=== PATIENT | male | born 1950 | race Caucasian/White ===

== ENCOUNTER 2019-09-22 09:20 | Outpatient (CLI) | payer MEDICARE, SELFPAY ==
--- NOTE | ~2019-09-22 | US_ITS ---
EXAMINATION: US right upper quadrant DATE: 09/22/2019 10:01 INDICATION: Gallbladder disease. TECHNIQUE: Multiple grayscale and Doppler ultrasound images of the abdomen were obtained. COMPARISON: Ultrasound 11/14/2018 FINDINGS: The visualized portions of the head, body, and tail of the pancreas are normal. The liver i s normal without focal lesion. There is normal flow in main portal vein. The gallbladder is normal in size and contains sludge with change in position from the prior exam. No gallstones or gallbladder w all thickening. There was no sonographic Driscoll sign. The common duct is normal and measures 5 mm. Th ere is a 1.9 cm cyst in right kidney. IMPRESSION: 1. Gallbladder sludge. No evidence of acute cholecystitis. Reviewed, dictated and finalized at location A.
== END 2019-09-22 09:21 | disposition home or self-care (01) ==
LOC: ANHIMG 09:23
PROVIDERS: PCP Emergency Medicine; Visit Provider Emergency Medicine
DX: K82.8 Other specified diseases of gallbladder (principal)
CPT/HCPCS: 76705

== ENCOUNTER → 2020-09-10 01:19 | Outpatient (CLI) | payer MEDICARE, SELFPAY ==
[2020-09-10 19:37] LABS: SARS-CoV-2 RNA PCR Negative
== END ==
PROVIDERS: PCP Emergency Medicine; Visit Provider Internal Medicine Gastroenterology
DX: Z01.812 Encounter for preprocedural laboratory examination (principal); Z20.822 Contact with and (suspected) exposure to COVID-19
CPT/HCPCS: C9803; U0003; U0005

== ENCOUNTER 2020-09-14 00:16 | Day surgery (SDC) | payer MEDICARE, SELFPAY ==
[2020-09-08 08:35] VITALS: BMI 26.6
[2020-09-14 10:19] VITALS: BP 127/66; PULSE 79; RESP 18; TEMP 36.6; O2SAT 99
[2020-09-14] MEDS: LACTATED RINGERS 1,000 ML 150 ML IV CONT (10:30)
--- NOTE | 2020-09-14 10:49 | WPDANESEPPF ---
Anes - Initial Pre Proc Eval Procedure: Operation Date: 09/14/20 11:15 Proposed Procedures p Screening Colonoscopy - Jon Razo MD Date/Time: 09/14/20 10:49 Surgeon: Jon Razo MD Pre Op Diagnosis: hx of colon polyps Patient Data Age: 69 Gender: M Height: 5 ft 6 in Weight: 74.6 kg Last Vital Signs Temp 97.8 F 09/14/20 10:19 Pulse 79 09/14/20 10:19 Resp 18 09/14/20 10:19 BP 127/66 09/14/20 10:19 Pulse Ox 99 09/14/20 10:19 Allergies Allergy/AdvReac Type Severity Reaction Status Date / Time No Known Allergies Allergy Verified 09/14/20 10:18 Home Medications Medication Instructions Recorded Confirmed Type aspirin [Aspir-81] 81 mg PO DAILY 09/08/20 09/08/20 History bimatoprost [Lumigan] 1 drp EACH EYE DAILY 09/08/20 09/08/20 History ezetimibe 10 mg PO DAILY 09/08/20 09/08/20 History lisinopril 10 mg PO DAILY 09/08/20 09/08/20 History Patient hx anesthesia problems: none Family hx anesthesia problems: none PMFSH Past Medical History Medical History (Updated 09/14/20 @ 10:49 by Gildardo Gray MD) CAD (coronary artery disease) Hyperlipidemia Hypertension Pacemaker Surgical History Surgical History (Updated 09/14/20 @ 10:49 by Gildardo Gray MD) Stented coronary artery Family History Family History (Updated 12/03/13 @ 07:13 by DOCTOR UNKNOWN) Father Family history of malignant neoplasm Social History Social History Smoking packs per day: 1 Smoking cigarettes per day: 20.0 Smoking status: Former smoker Tobacco type: cigarettes Alcohol intake: current Drinks per week: 10 Substance use: former Substance use type: does not use Living arrangements: with family Spiritual care concerns: No Anes - Eval Final PreProcedure Day of Procedure 09/14/20 10:49 Patient weight: normal Heart: regular rate and rhythm Lungs: clear to auscultation Airway: Mallampati scale class II Neurological: alert and oriented Last oral intake: >/= 8 hours ASA classification: III Emergent: no Anesthetic plan: proceed Anesthesia type and monitoring: general GIVS and standard monitoring Informed Consent: The patient's anesthetic plan and its attendant risks and benefits were discussed with the patient/family/POA. Questions were solicited and answers provided to the satisfaction of the patient/family/POA.
--- NOTE | 2020-09-14 11:06 | PM.HPGS ---
History of Present Illness History of Present Illness Consent: Risks, benefits, and alternatives have been discussed and questions answered. Patient agrees to proceed with procedure. Chief complaint: hx of colon polyps Narrative: Ravi Carlson is a 69 year old male with colon polyp in 2013 Review of Systems Constitutional: Constitutional: Denies headache(s) and Denies weakness Eyes: Eyes: Denies blurry vision ENT: Reports Normal hearing present, Denies headache(s) and Denies neck pain Cardiovascular: Cardiovascular: Denies chest pain and Denies dyspnea Respiratory: Respiratory: Denies dyspnea Gastrointestinal: Gastrointestinal: Reports no additional gastrointestinal complaints Genitourinary: Genitourinary: Denies dysuria Musculoskeletal: Musculoskeletal: Denies neck pain Integumentary/Breasts: Skin/Breast: Denies dry skin Neurologic: Reports Normal hearing present, Denies headache(s) and Denies weakness Psychiatric: Psychiatric: Denies anxiety Endocrine: Endocrine: Denies change in body appearance Hematologic/Lymphatic: Hematologic/Lymphatic: Denies easy bleeding Allergic/Immunologic: Allergic/Immunologic: Denies urticaria PMFSH Past Medical History Medical History (Updated 09/14/20 @ 11:12 by Jon Razo MD) CAD (coronary artery disease) Colon polyp Hyperlipidemia Hypertension Pacemaker Surgical History Surgical History (Updated 09/14/20 @ 10:49 by Gildardo Gray MD) Stented coronary artery Family History Family History (Updated 12/03/13 @ 07:13 by DOCTOR UNKNOWN) Father Family history of malignant neoplasm Social History Social History Smoking packs per day: 1 Smoking cigarettes per day: 20.0 Smoking status: Former smoker Tobacco type: cigarettes Alcohol intake: current Drinks per week: 10 Substance use: former Substance use type: does not use Living arrangements: with family Spiritual care concerns: No Meds Home Medications and Allergies Home Medications Medication Instructions Recorded Confirmed Type aspirin [Aspir-81] 81 mg PO DAILY 09/08/20 09/08/20 History bimatoprost [Lumigan] 1 drp EACH EYE DAILY 09/08/20 09/08/20 History ezetimibe 10 mg PO DAILY 09/08/20 09/08/20 History lisinopril 10 mg PO DAILY 09/08/20 09/08/20 History Allergies Allergy/AdvReac Type Severity Reaction Status Date / Time No Known Allergies Allergy Verified 09/14/20 10:18 Vital Signs Vital Signs - 24 hr 09/14/20 10:19 Temperature 97.8 F Pulse Rate 79 Respiratory Rate 18 Blood Pressure 127/66 Pulse Oximetry 99 Exam Const: General: comfortable and no acute distress HENMT: General nose exam: Normal nares present Eyes: General: appearance normal, both eyes and all related structures Neck: Neck: no JVD Resp: Auscultation: clear to auscultation bilaterally Cardio: Rate: regular rate Rhythm: regular rhythm GI: Inspection: non-distended GI Palp: Yes Soft to palpation Skin: General skin exam: normal color Neuro: General: gait normal Speech: normal speech Extrem: General: normal to inspection Psych: Mental Status: mental status grossly normal Assessment and Plan Assessment and plan (1) Colon polyp: Code(s): K63.5 - Polyp of colon Status: Acute Assessment and Plan: colonoscopy
[2020-09-14 11:32] VITALS: BP 103/55; PULSE 65; RESP 16; O2SAT 96
[2020-09-14 11:42] VITALS: BP 102/56; PULSE 67; RESP 19; O2SAT 99
[2020-09-14 11:52] VITALS: BP 118/68; PULSE 62; RESP 19; O2SAT 97
== END 2020-09-14 12:00 | disposition home or self-care (01) ==
PROVIDERS: PCP Emergency Medicine; Visit Provider Internal Medicine Gastroenterology
PROC: 0DJD8ZZ Inspection of Lower Intestinal Tract, Via Natural or Artificial Opening Endoscopic (ICD-10-PCS; CPT 45378; principal; 2020-09-14 11:15)
DX: Z12.11 Encounter for screening for malignant neoplasm of colon (principal); D12.2 Benign neoplasm of ascending colon; D12.5 Benign neoplasm of sigmoid colon; K57.30 Diverticulosis of large intestine without perforation or abscess without bleeding; K64.8 Other hemorrhoids; I25.10 Atherosclerotic heart disease of native coronary artery without angina pectoris; I10 Essential (primary) hypertension; E78.5 Hyperlipidemia, unspecified; Z95.0 Presence of cardiac pacemaker; Z95.5 Presence of coronary angioplasty implant and graft; Z79.82 Long term (current) use of aspirin; Z87.891 Personal history of nicotine dependence
CPT/HCPCS: 45385; 45380; 88305; C9803; J2001; J2704; J7120; U0003; U0005

== ENCOUNTER 2021-02-01 07:52 | Outpatient (CLI) | payer MEDICARE, SELFPAY ==
--- NOTE | ~2021-02-01 | US_ITS ---
EXAMINATION: US right upper quadrant DATE: 02/01/2021 08:18 INDICATION: Right upper quadrant pain TECHNIQUE: Multiple grayscale and Doppler ultrasound images of the abdomen were obtained. COMPARISON: 09/22/2019 FINDINGS: The head, body, and tail of the pancreas are normal. The liver is normal with normal echoge nicity and echotexture. No surface nodularity. Normal hepatopetal flow in the main portal vein. There are multiple stones in the nondistended gallbladder. The previously described echogenic nonshadowing nodule along the hepatic side of the gallbladder is no longer identified, most likely reflecting slu dge on the prior examination. There is no gallbladder wall thickening or pericholecystic fluid. The n ormal common bile duct measures 3 mm. There was no sonographic Driscoll sign. IMPRESSION: 1. Cholelithiasis without evidence of cholecystitis. Reviewed, dictated and finalized at location A.
== END 2021-02-01 07:53 ==
PROVIDERS: PCP Emergency Medicine; Visit Provider Emergency Medicine
DX: K80.20 Calculus of gallbladder without cholecystitis without obstruction (principal)
CPT/HCPCS: 76705

== ENCOUNTER 2021-02-21 07:54 | Outpatient (CLI) | payer MEDICARE, SELFPAY ==
--- NOTE | ~2021-02-21 | NM_ITS ---
EXAMINATION: NM hepatobiliary wo pharm DATE: 02/21/2021 11:49 INDICATION: Calculus of the gallbladder without cholecystitis without obstruction. COMPARISON: Ultrasound 02/01/2021 TECHNIQUE: 4.8 mCi Tc-99m mebrofenin (Choletec) was administered intravenously. Scintigraphic images of the abdomen were obtained for one hour. Delayed images were obtained at 4 hours. FINDINGS: There is normal clearance of radiotracer from the blood pool. There is homogeneous tracer u ptake by the liver. Activity progresses to the bowel by 20 minutes. There is activity in the gallbla dder at 4 hours. IMPRESSION: 1. Patent cystic duct. No evidence of acute cholecystitis. Reviewed, dictated and finalized at location A. 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
== END 2021-02-21 07:55 | disposition home or self-care (01) ==
PROVIDERS: PCP Emergency Medicine; Visit Provider Emergency Medicine
DX: K80.20 Calculus of gallbladder without cholecystitis without obstruction (principal)
CPT/HCPCS: 78226; A9537

== ENCOUNTER 2023-05-16 08:39 | Emergency (ER) | payer MEDICARE, SELFPAY ==
--- NOTE | ~2023-05-16 | XR_ITS ---
Clinical Indication: Cough PA and lateral views of the chest: Comparison: 11/01/2018 Findings: Stable calcified pulmonary granulomas. The lungs are otherwise clear, without evidence of f ocal consolidation or pleural effusion. Cardiomediastinal silhouette is stable, with pacemaker devic e. Bones and soft tissues are unremarkable. Impression: No significant abnormality seen. Reviewed, dictated and finalized at location . 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
--- NOTE | 2023-05-16 08:49 | ED.URI ---
HPI - URI/Sore Throat General Chief Complaint: Upper Respiratory Infection Stated Complaint: congestion Time Seen by Provider: 05/16/23 08:56 Source: patient, RN notes reviewed and old records reviewed Mode of arrival: ambulatory Limitations: no limitations History of Present Illness HPI Narrative: 72-year-old male presents to the [facility] with complaints runny nose, cough, chest congestion for ?a couple of weeks. ? Patient states ?I just needed Z-Vic to clear this. ? Patient reports a history of bronchitis Has tried Mucinex Denies fevers, chest pain. Treatments prior to arrival: none Related Data Home Medications Medication Instructions Recorded Confirmed aspirin 81 mg tablet,delayed 81 mg PO DAILY 09/08/20 05/16/23 release bimatoprost 0.01 % eye drops 1 drp EACH EYE DAILY 09/08/20 05/16/23 (Alondra) ezetimibe 10 mg tablet 10 mg PO DAILY 09/08/20 05/16/23 lisinopril 10 mg tablet 10 mg PO DAILY 09/08/20 05/16/23 brimonidine 0.2 % eye drops 1 drp 05/16/23 Allergies Allergy/AdvReac Type Severity Reaction Status Date / Time No Known Allergies Allergy Verified 05/16/23 08:57 Review of Systems Review of Systems: All systems reviewed & are unremarkable except as noted in HPI and below Constitutional: Constitutional: Reports no additional constitutional complaints Eyes: Eyes: Reports no additional eye complaints ENT: Reports system reviewed and no additional complaints, except as documented Cardiovascular: Cardiovascular: Reports no additional cardiovascular complaints, Denies chest pain and Denies dyspnea Respiratory: Respiratory: Reports as per HPI, Reports chest congestion, Reports cough and Denies dyspnea Gastrointestinal: Gastrointestinal: Reports no additional gastrointestinal complaints, Denies abdominal pain, Denies nausea and Denies vomiting Musculoskeletal: Musculoskeletal: Reports no additional musculoskeletal complaints Integumentary/Breasts: Skin/Breast: Reports system reviewed and no additional complaints, except as docu Neurologic: Reports system reviewed and no additional complaints, except as documented Psychiatric: Psychiatric: Reports no additional psychiatric complaints Allergic/Immunologic: Allergic/Immunologic: Reports no additional allergic/immunologic complaints PMFSH Past Medical History Medical History CAD (coronary artery disease) Colon polyp Hyperlipidemia Hypertension Pacemaker Surgical History Surgical History Stented coronary artery Family History Family History Father Family history of malignant neoplasm Social History Social History (Updated 05/16/23 @ 10:07 by Maria Luz Espinoza APRN) Smoking packs per day: 1 Smoking cigarettes per day: 20.0 Smoking status: Current every day smoker Tobacco type: e-cigarettes/vaping Additional smoking assessment comments: No longer smokes cigarettes, currently vapes Alcohol intake: current Drinks per week: 10 Substance use: former Substance use type: does not use Living arrangements: with family Spiritual care concerns: No Comments At the time of my signature, I reviewed and agree with the nursing past medical, surgical, social, and family history. There is no relevant family history pertinent to the patient complaint. Exam Const: General: cooperative, no acute distress, well developed, alert, ill appearing chronically, uncomfortable and well nourished Nutritional Appearance: well nourished Orientation/consciousness: patient oriented x3 Limitations: no limitations HENMT: Head: normal to inspection Ears: hearing grossly normal bilaterally, external ears normal and Abnormal EAC present cerumen impaction Face/Nose/Sinus: Normal external nose present, Normal nares present, Normal nasal mucous membranes and turbinates present, Nasal di
[2023-05-16 08:53] VITALS: BP 113/62; PULSE 76; RESP 18; TEMP 36.5; O2SAT 95
[2023-05-16 08:59] VITALS: BP 113/62; PULSE 76; RESP 18; TEMP 36.5; O2SAT 95
== END 2023-05-16 09:40 | disposition home or self-care (01) ==
PROVIDERS: Emergency Provider Nurse Practitioner; PCP Emergency Medicine
DX: J40 Bronchitis, not specified as acute or chronic (principal); I25.10 Atherosclerotic heart disease of native coronary artery without angina pectoris; E78.5 Hyperlipidemia, unspecified; I10 Essential (primary) hypertension; F17.210 Nicotine dependence, cigarettes, uncomplicated; Z79.82 Long term (current) use of aspirin; Z79.899 Other long term (current) drug therapy
CPT/HCPCS: 71046; 99213; G0463

== ENCOUNTER 2024-04-22 00:31 | Day surgery (SDC) | payer MEDICARE, SELFPAY ==
[2024-04-21 13:12] VITALS: BMI 25.5
[2024-04-22] VITALS (7 sets, daily range): BP systolic 92–108; BP diastolic 53–64; PULSE 60–66; RESP 15–20; TEMP 37; O2SAT 96–98; BMI 25.2
[2024-04-22 07:30] LABS: Basophils Absolute Auto 0.1 K/mm3 (0.0-0.1); Basophils Percent Auto 1.1 % (0.2-1.2); Eosinophils Absolute Auto 0.4 K/mm3 (0-0.3); Eosinophils Percent Auto 5.4 % (0-4.4); Hematocrit 45.6 % (42.0-52.0); Hemoglobin 15.4 g/dL (14.0-18.0); Immature Granulocyte Absolute 0.02 K/mm3 (0.00-0.031); Immature Granulocyte Percent A 0.3 % (0-0.5); Lymphocytes Absolute Auto 1.81 K/mm3 (0.9-3.2); Lymphocytes Percent Auto 25.9 % (18.3-44.2); Mean Corpuscular HGB Conc 33.8 g/dl (32-36); Mean Corpuscular Hemoglobin 31.7 pg (26-34); Mean Corpuscular Volume 93.8 fl (80-100); Mean Platelet Volume 10.2 fl (7.4-10.4); Monocytes Absolute Auto 0.6 K/mm3 (0.1-0.6); Neutrophils Absolute Auto 4.1 K/mm3 (1.3-6.7); Neutrophils Percent Auto 59.3 % (45.5-73.1); Platelet Count Result 192 k/mm3 (150-375); Red Blood Count 4.86 M/mm3 (4.6-6.20); Red Cell Distribution Width 13.3 % (11.5-14.5)
--- NOTE | 2024-04-22 07:30 | ECG_ITS ---
Test Date: 2024-04-22 07:31:29 Measurements Intervals [place] Rate: 64 P: 0 CA: 0 QRS: -70 QRSD: 177 T: 65 QT: 484 QTc: 503 Interpretive Statements ELECTRONIC VENTRICULAR PACEMAKER ABNORMAL RHYTHM ECG No previous ECG available for comparison Electronically Signed On 04-22-2024 14:26:44 [employer] by Penelope Nuñez M.D.
--- NOTE | 2024-04-22 07:38 | P.SEDATION_ITS ---
Moderate Sedation Note-Pt Data Patient Data Diagnosis: Complete heart block with permanently implanted pacemaker at [facility] Present Complaint: No complaints Procedure to be performed/Plan: Pacemaker generator change Allergies Allergy/AdvReac Type Severity Reaction Status Date / Time No Known Allergies Allergy Verified 04/22/24 07:21 Home Medications ?Medication ?Instructions ?Recorded ?Confirmed ?Type aspirin 81 mg tablet,delayed 81 mg PO DAILY 09/08/20 04/21/24 History release ezetimibe 10 mg tablet 10 mg PO DAILY 09/08/20 04/21/24 History lisinopril 10 mg tablet 10 mg PO DAILY 09/08/20 04/21/24 History Sedation/Anesthesia: No previous sedation/anesthesia problems (including family history). [facility] Past Medical History Medical History CAD (coronary artery disease) Colon polyp Hyperlipidemia Hypertension Pacemaker Surgical History Surgical History Stented coronary artery Family History Family History Father Family history of malignant neoplasm Social History Social History (Updated 05/16/23 @ 10:07 by Maria Luz Espinoza APRN) Smoking packs per day: 1 Smoking cigarettes per day: 20.0 Smoking status: Current every day smoker Tobacco type: cigarettes Smoking end date: 04/08/24 Additional smoking assessment comments: No longer smokes cigarettes, currently vapes Alcohol intake: current Drinks per week: 6 Substance use: never Substance use type: does not use Living arrangements: with family Spiritual care concerns: No Mod Sed Physical Exam Physical Exam Pre Procedural Exam: Normal: Appearance, Neck, Throat, Airway, Lungs, Heart Size, Heart Rate and Extremities and Variation: Heart Rhythm (Paced rhythm) Hours since solid foods: 12 Hours since liquid intake: 12 Mallampati Classification: class II Internal Medicine - PN: Obj Da Vital Signs Vital Signs: Vital Signs - 24 hr 04/22/24 07:23 Temperature 37.0 C Pulse Rate 66 Respiratory Rate 16 Blood Pressure 108/59 L Pulse Oximetry 97 Oxygen Delivery Room Air Labs 04/22/24 07:21 04/22/24 07:21 Labs: Laboratory Results - last 24 hr 04/22/24 07:21 WBC 7.0 RBC 4.86 Hgb 15.4 Hct 45.6 MCV 93.8 MCH 31.7 MCHC 33.8 RDW 13.3 Plt Count 192 MPV 10.2 Immature Gran % (Auto) 0.3 Neut % (Auto) 59.3 Lymph % (Auto) 25.9 [place] % (Auto) 8.0 Eos % (Auto) 5.4 H Baso % (Auto) 1.1 Lymph # (Auto) 1.81 [place] # (Auto) 0.6 Eos # (Auto) 0.4 H Baso # (Auto) 0.1 Abs Immat Gran (auto) 0.02 Absolute Neuts (auto) 4.1 Absolute Nucleated RBC 0.000 Nucleated RBC % 0.0 ASA Classification/Sedation ASA Classification/Sedation ASA Class: II Emergent: No Risks: Risks, benefits and alternatives explained and patient/family accepted plan for sedation. Patient re-evaluated immediately prior to sedation.
[2024-04-22 07:40] LABS: Anion Gap 6 mmol/L (4-12); Blood Urea Nitrogen 14 mg/dL (9-20); Carbon Dioxide 28 mmol/L (22-30); Chloride 102 mmol/L (98-107); Estimated CRCL calculation 67 ml/min; Estimated Glomerular Filt Rate > 60; Glucose 114 mg/dL (65-110); Potassium 4.4 mmol/L (3.4-5.0); Sodium 136 mmol/L (137-145)
--- NOTE | 2024-04-22 09:33 | P.PCNCC_ITS ---
Cardiac Cath Procedure Note Date of procedure:: 04/22/24 Performing physician:: Laz Carvajal MD Indication:: Permanently implanted pacemaker at [facility] Brief clinical history:: This is a 73-year-old man who has acquired complete heart block who received a permanent dual-chamber pacemaker for treatment of this. The device has been followed in our office and is now at [facility]. The patient is admitted today as an outpatient for elective generator change. He has no cardiovascular complaints this morning Procedure Procedure performed:: Explant of depleted pacemaker pulse generator Implant of new dual-chamber pulse generator Sedation/Medication given:: Fentanyl 25 mg Versed 2 mg Access site:: Chronic left anterior chest wall pocket Estimated blood loss:: Minimal Procedure note:: Patient was brought to the cardiac catheterization lab in the postabsorptive state the left anterior chest wall was prepped and draped in the normal fashion. Anesthesia was provided with 20 cc of 1% lidocaine infiltrated over the pocket. An incision was then made using the plasma blade over the pocket and electrocautery was used to provide cutaneous hemostasis. The fibrous capsule was encountered and was opened using the plasma blade and the Metzenbaum scissors. The chronically implanted pacemaker in the attached leads were then removed from the pocket and were found to be visually unremarkable in appearance. The torque wrench was used then to remove the leads from the depleted generator. The same torque wrench was used to connect the leads to the new generator detailed below. Following this the pocket was irrigated with antibiotic infused saline. The generator and the chronically implanted leads were placed back into the pocket which was then closed in layers using 3-0 Vicryl in an interrupted fashion subcutaneous tissue and 4-0 Vicryl in a running subcuticular fashion for the skin. The wound was dressed with an Aquacel dressing. The procedure was well tolerated and uncomplicated. Findings:: The explanted pulse generator is a [employer] dual-chamber pacemaker model S606. Serial number [id number]. Device was originally implanted May 01, 2010. The newly implanted pacemaker generator is a [employer] dual-chamber pacemaker model L311. Serial number [id number]. The device is programmed in the DDD mode lower rate limit 60 upper rate limit 130 paced AV delay 220-300 millisecond sensed AV delay 180-300 millisecond. The chronically implanted atrial lead is a Guid[employer] bipolar lead model 4135 DEXTRUS IS-1 Bi positive fix 45cm serial [id number]. Originally implanted May 01, 2010. R-waves are sensed at 2.4 mV threshold 0.6 volt at 0.4 milliseconds impedance 583 Ohms. The chronically implanted ventricular lead is a [employer] bipolar lead model 4136: DEXTRUS IS-1 Bi positive fix 53cm serial number [id number]. Originally implanted May 01, 2010. The R-waves are paced. The threshold is 1.6 volts at 0.4 millisecond impedance 500 Ohms. Conclusion:: 1. Successful uncomplicated explantation of depleted dual-chamber pulse generator 2. Successful uncomplicated implantation of new [employer] dual-chamber pulse generator for ongoing treatment complete heart block in this 73-year-old man Laz Carvajal MD [facility]
== END 2024-04-22 11:19 | disposition home or self-care (01) ==
PROVIDERS: PCP Emergency Medicine; Visit Provider Specialist
PROC: 0JPT0PZ Removal of Cardiac Rhythm Related Device from Trunk Subcutaneous Tissue and Fascia, Open Approach (ICD-10-PCS; CPT 33228; principal; 2024-04-22 08:30)
DX: Z45.010 Encounter for checking and testing of cardiac pacemaker pulse generator [battery] (principal); I44.2 Atrioventricular block, complete; I10 Essential (primary) hypertension; I25.10 Atherosclerotic heart disease of native coronary artery without angina pectoris; E78.5 Hyperlipidemia, unspecified; Z79.82 Long term (current) use of aspirin; Z95.5 Presence of coronary angioplasty implant and graft; F17.290 Nicotine dependence, other tobacco product, uncomplicated
CPT/HCPCS: 33228; 36415; 80048; 85025; 93005; C1786; J0690; J2003; J2250; J3010; J7040; J7050

== ENCOUNTER 2024-07-03 00:55 | Day surgery (SDC) | payer MEDICARE, SELFPAY ==
[2024-04-02 11:40] VITALS: BMI 25.0
[2024-06-24 11:41] VITALS: BMI 25.0
--- OUTSIDE RECORDS SUMMARY | 2024-07-03 00:58 | XMS_ITS | Encounter Summary ---
Author Organization [facility] Address [address] [place] [id number] Care Team Providers Care Power Brake Rebuilder Name Role Phone Anson Lei MD Primary Care Provider [phone] Encounter Details Date Type Department Care Team ([facility] st Contact Info) Description 08/15/2016 Orders Only [facility] ProviderAustin MD [address] [place] [address] Social History Tobacco Use Types Packs/Day Years Used Date Smoking Tobacco: Some Days Alcohol Use Standard Drinks/Week Comments Yes 0 (1 standard drink = 0.6 oz pur e alcohol) Sex and Gender Information Value Date Recorded Sex Assigned at Not on file 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 Historical Provider [facility] Final Result documented in this encounter Visit Diagnoses Not on filedocumented in this encounter Care Teams Power Brake Rebuilder Relationship Specialty Start Date End Date Anson Lei MD PCP - General 08/02/10 documented as of this encounter
--- OUTSIDE RECORDS SUMMARY | 2024-07-03 00:58 | XMS_ITS | Referral Summary ---
Author Organization [facility] [address] [facility] [address] Address [address] [place] [address] Care Team Providers Care Aircraft Captain Name Role Phone Anson Lei MD Primary Care Provider [phone] Encounters Date Type Department Care Team Description 04/29/2024 Orders Only [facility] [address] [facility] [address] [address] Obi Roman MD Presence of cardiac pacemaker (Primary Dx); Complete heart block (HCC) 04/29/2024 12:00 PM FISHING BOAT CAPTAIN Ancillary Procedure [facility] [address] [place] [address] Intermittent complete heart block (HCC); Presence of cardiac pacemaker 04/22/2024 Orders Only [facility] Health Information Management [address] [place] [address] Laz Carvajal MD from Last 3 Months Allergies Active Allergy Reactions Criticality Noted Date Comments Atorvastatin Other (See comments) Low 12/24/2018 Depression Medications aspirin 81 mg tablet take 1 tablet by oral route every day 0 0 3 Active Lumigan 0.01 % ophthalmic drops 0 Active rosuvastatin (CRESTOR) 20 mg tabletIndications:Cor onary arteriosclerosis in [place] artery,Mixed hyperlipidemia TAKE 1 TABLET BY MOUTH DAILY 90 tablet 3 4 Active lisinopriL (PRINIVIL,ZESTRIL) 10 mg tablet TAKE 1 TABLET BY MOUTH ONCE DAILY 100 tablet 2 5 Active Active Problems Problem Noted Date Diagnosed Date Rash 06/02/2023 Idiopathic hypotension 06/02/2023 Hip pain 01/04/2023 Hypertriglyceridemia 12/07/2020 Thrombocytopenia 12/24/2018 Statin intolerance 12/24/2018 Noncompliance 01/04/2018 Mixed hyperlipidemia 12/26/2015 Overview (07/12/2016): Mixed hyperlipidemia Assessment & Plan (12/22/2016 2:13 PM CDT): 12/2015: Total chol 131, LDL 68, TG 127 Pt has reduced his total chol and TG by 50% since 2006. Presence of stent in coronary artery 12/26/2015 Overview (07/12/2016): Stented coronary artery Presence of cardiac pacemaker 12/26/2015 Overview (04/23/2024): [employer] Accolade L311 Dual Pacemaker Dx; intermittent CHB. DOI 04/22/2024 - Wei. Chronic leads 05/01/10. Latitude remote monitoring Assessment & Plan (12/22/2016 2:12 PM CDT): [employer] Pacemaker 2013 for intermittent CHB. Pacer check 08/2016: A paced 5%, RV paced 0%, longevity > 5 years, normal fxn Coronary arteriosclerosis in [place] artery 12/25 Overview (07/12/2016): Atherosclerosis of [place] coronary artery of [place] heart without angina pectoris Assessment & Plan (12/22/2016 2:11 PM CDT): Pt w/ CAD, [place] stents; doing well since last intervention in 2006. 2015: Negative stres test, EF 66%. Stable w/o angina, good exertional tolerance. Former tobacco use 06/28/2014 Overview (07/12/2016): Former smoker Intermittent complete heart block 12/28/2013 Overview (07/12/2016): CHB (complete heart block) Old myocardial infarction 08/22/2013 Overview (07/13/2016): OLD MYOCARDIAL INFARCT Hypercholesteremia 08/22/2013 Overview (07/13/2016): HYPERLIPIDEMIA NEC/NOS Post percutaneous transluminal coronary angiopla sty 02/03/2007 Overview (07/12/2016): STATUS-POST PTCA Resolved Problems Problem Noted Date Diagnosed Date Resolved Date Tobacco dependence syndrome 08/22/2013 12/22/2016 Overview (07/13/2016): TOBACCO USE DISORDER Social History Tobacco Use Types Packs/Day Years Used Date Smoking Tobacco: Former Cigarettes Q uit: 01/01/2014 Smokeless Tobacco: Never Tobacco Cessation:Counseling Given: Not Answered Alcohol Use Standard Drinks/Week Comments Yes 0 (1 standard drink = 0.6 oz pur e alcohol) Sex and Gender Information Value Date Recorded Sex Assigned at Not on file Legal Sex Male 12:24 AM FISHING BOAT CAPTAIN Gender Identity Not on file Sexual Orientation Not on file Last Filed Vital Signs Vital Sign Reading Time Taken Comments Blood Pressure 100/60 02/18/2024 8:55 AM FISHING BOAT CAPTAIN Pulse 97 02/18/2024 8:55 AM FISHING BOAT CAPTAIN Temperature - - Respiratory Rate - - Oxygen Saturation 98% 02/18/2024 8:55 AM FISHING BOAT CAPTAIN Inhaled Oxygen Concentration - - Weight 71 kg (156 lb 8 oz) 02/18/2024 8:55 AM CS T Height 167.6 cm (5' 6 ) 02/18/2024 8:55 AM FISHING BOAT CAPTAIN Body Mass Index 25.26 02/18/2024 8:55 AM FISHING BOAT CAPTAIN Plan of Treatment Not on file Medical Devices Implanted Type Area Private Duty Aide Device Identifier Shelf Expiration Date Model / Serial / Lot Lead (Ra)-05/01/2010 Implanted:05/01 by Maria D Jacob MD (Quantity not on file) Lead Heart [employer] [id number] / [id number] / Description:PATIENT'S IMPLAN [place] DEVICE IS NOT MRI CONDITIONAL - BENEFIT MUST BE HIGH FOR MRI EXAMS JL 07/29/2019 Lead (Rv)-05/01/2010 Implanted:05/01 by Maria D Jacob MD (Quantity not on file) Lead Heart [employer] [id number] / [id number] / Description:PATIENT'S IMPLAN [place] DEVICE IS NOT MRI CONDITIONAL - BENEFIT MUST BE HIGH FOR MRI EXAMS JL 07/29/2019 Pacemaker-2010 Implanted:05/01 by Maria D Jacob MD (Quantity not on file) Pacemaker Chest [employer] CHB ALTRUA [id number] / [id number] / Description:PATIENT'S EDU PERRIN DEVICE IS NOT MRI CONDITIONAL - BENEFIT MUST BE HIGH FOR MRI EXAMS JL 07/29/2019 Procedures Procedure Name Priority Date/Time Associated Diagnosis Comments DEVICE CHECK - IN OFFICE Routine 04/29/2024 11:47 AM FISHING BOAT CAPTAIN Intermittent complete heart block (HCC) Presence of cardiac pacemaker CARDIOLOGY DOCUMENT SCAN Routine 04/22/2024 5:24 PM FISHING BOAT CAPTAIN CARDIOLOGY DOCUMENT SCAN 04/22/2024 from Last 3 Months Results * DEVICE CHECK - IN OFFICE (04/29/2024 11:47 AM FISHING BOAT CAPTAIN) Anatomical Region Laterality Modality Other Narrative 04/30/2024 3:22 PM FISHING BOAT CAPTAIN [employer] Accolade L311 Dual Pacemaker Dx; intermittent CHB. DOI 04/22/2024 - Wei. Chronic leads 05/01/10. Latitude remote monitoring. Supervising MD: Dr Bethea. Left pectoral incision well approximated. No redness or drainage noted. Moderate pocket edema noted. Reiterated wound care instructions. Office DDD Pacemaker interrogation demonstrated appropriate device function. No testing performed. Appropriate lead measurements noted. Battery function: BOBBY, 9.5 years remaining battery life to JEAN CARLOS. Presenting rhythm: -PULLEY MAN. AP- 5%, PULLEY MAN- 100%. No Atrial high rate episodes recorded. No Ventricular high rate episodes noted. Medications; ASA 81 mg. No programming changes made to device settings. See scanned report. Office pacemaker f/u scheduled 05/26/2025. Latitude remote f/u 07/29/2024. Tameka Faustin, TIA us Maria D Jacob MD CV CARDIAC SERVICES PROCEDU RES Final Result * Cardiology Document Scan (04/22/2024 5:24 PM FISHING BOAT CAPTAIN) Anatomical Region Laterality Modality Other us Laz Carvajal MD CV CARDIAC SERVICES PROC EDURES Final Result * Cardiology Document Scan (04/22/2024) Anatomical Region Laterality Modality Other us Laz Carvajal MD CV CARDIAC SERVICES PROC EDURES Final Result from Last 3 Months Insurance MEDICARE ADVANTAGE [facility] MEDICARE ADVANTAGE Care Teams Aircraft Captain Relationship Specialty Start Date End Date Anson Lei MD PCP - General 08/02/10
--- OUTSIDE RECORDS SUMMARY | 2024-07-03 00:58 | XMS_ITS | Clinical Summary ---
Author Organization [facility] [address] Address [address] [place] [address] Care Team Providers Care Electronic Typesetting Machine Operator Name Role Phone Anson Lei MD Primary Care Provider [phone] Allergies Active Allergy Reactions Criticality Noted Date Comments Atorvastatin Other (See comments) Low 12/24/2018 Depression Medications aspirin 81 mg tablet take 1 tablet by oral route every day 0 0 3 Active Lumigan 0.01 % ophthalmic drops 0 Active rosuvastatin (CRESTOR) 20 mg tabletIndications:Cor onary arteriosclerosis in [place] artery,Mixed hyperlipidemia TAKE 1 TABLET BY MOUTH [...] Presence of cardiac pacemaker 12/26/2015 Overview (04/23/2024): [place] Accolade L311 Dual Pacemaker Dx; intermittent CHB. DOI 04/22/2024 - Wei. Chronic leads 05/01/10. Latitude remote monitoring Assessment & Plan (12/22/2016 2:12 PM CDT): [place] Pacemaker 2013 for intermittent CHB. Pacer check 08/2016: A paced 5%, RV paced 0%, longevity > 5 years, normal fxn Coronary arteriosclerosis in [place] artery 12/25 Overview (07/12/2016): Atherosclerosis of [place] coronary artery of [place] heart without angina pectoris Assessment & Plan (12/22/2016 2:11 PM CDT): Pt w/ CAD, [place] stents; doing well since last intervention in [...] 08/22/2013 12/22/2016 Overview (07/13/2016): TOBACCO USE DISORDER Encounters Date Type Department Care Team Description 04/29/2024 12:00 PM DIRECTOR OF MEDICAL EDUCATION Ancillary Procedure [facility] [address] [place] [id number] Intermittent complete heart block (HCC); Presence of cardiac pacemaker 04/29/2024 Orders Only [facility] [address] [facility] [address], [place] [address] Obi Roman MD Presence of cardiac pacemaker (Primary Dx); Complete heart block (HCC) 04/22/2024 Orders Only [facility] Health Information Management [address] [place] [address] Laz Carvajal MD from Last 3 Months Medical History Medical History Date Comments Coronary artery disease Hypercholesterolemia Family History Medical History Relation Name Comments Leukemia Father Alzheimer's disease Paternal Grandfather Stroke Paternal Grandmother Relation Name Status Comments Father Paternal Grandfather Paternal Grandmother Social History Tobacco Use Types Packs/Day Years Used Date Smoking Tobacco: Former Cigarettes Q uit: 01/01/2014 Smokeless Tobacco: Never Tobacco Cessation:Counseling Given: Not Answered Alcohol Use Standard Drinks/Week Comments Yes 0 (1 standard drink = 0.6 oz pur e alcohol) Sex and Gender Information Value Date Recorded Sex Assigned at Not on file Legal Sex Male 12:24 AM DIRECTOR OF MEDICAL EDUCATION Gender Identity Not on file Sexual Orientation Not on file Obstetrics History Last Filed Vital Signs Vital Sign Reading Time Taken Comments Blood Pressure 100/60 02/18/2024 8:55 AM DIRECTOR OF MEDICAL EDUCATION Pulse 97 02/18/2024 8:55 AM DIRECTOR OF MEDICAL EDUCATION Temperature - - Respiratory Rate - - Oxygen Saturation 98% 02/18/2024 8:55 AM DIRECTOR OF MEDICAL EDUCATION Inhaled Oxygen Concentration - - Weight 71 kg (156 lb 8 oz) 02/18/2024 8:55 AM CS T Height 167.6 cm (5' 6 ) 02/18/2024 8:55 AM DIRECTOR OF MEDICAL EDUCATION Body Mass Index 25.26 02/18/2024 8:55 AM DIRECTOR OF MEDICAL EDUCATION Plan of Treatment Health Maintenance Due Date Last Done Comments Colon Cancer Screening-Colonoscopy 1950 Depression Screening 1950 Fall Risk Assessment 1950 Hepatitis C Screening 1950 DTaP/Tdap/Td Vaccine (1 - Tdap) 1961 Hepatitis B Screening 1968 Pneumococcal vaccine 65+ (1 of 1 - PCV) 2000 Abdominal Aortic Aneurysm (AAA) Screen 12/24/2015 Well Visit 65+ 12/24/2015 Zoster Vaccine (2 of 3) 05/03/2016 03/08/2016 Influenza Vaccine (#1) 2023 Medical Devices Implanted Type Area Assistant Professor Of Theater Device Identifier Shelf Expiration Date Model / Serial / Lot Lead (Ra)-05/01/2010 Implanted:05/01 by Maria D Jacob MD (Quantity not on file) Lead Heart [employer] 4135 / [id number] / Description:PATIENT'S IMPLAN MARYCHUY DEVICE IS NOT MRI CONDITIONAL - BENEFIT MUST BE HIGH FOR MRI EXAMS 07/29/2019 Lead (Rv)-05/01/2010 Implanted:05/01 by Maria D Jacob MD (Quantity not on file) Lead Heart [employer] 4136 / [id number] / Description:PATIENT'S IMPLAN [place] DEVICE IS NOT MRI CONDITIONAL - BENEFIT MUST BE HIGH FOR MRI EXAMS 07/29/2019 Pacemaker-2010 Implanted:05/01 by Maria D Jacob MD (Quantity not on file) Pacemaker Chest [employer] CHB ALTRUA S606 / [id number] / Description:PATIENT'S IMPLAN [place]ARY[place] DEVICE IS NOT MRI CONDITIONAL - BENEFIT MUST BE HIGH FOR MRI EXAMS 07/29/2019 Procedures Procedure Name Priority Date/Time Associated Diagnosis Comments DEVICE CHECK - IN OFFICE Routine 04/29/2024 11:47 AM DIRECTOR OF MEDICAL EDUCATION Intermittent complete heart block (HCC) Presence of cardiac pacemaker CARDIOLOGY DOCUMENT SCAN Routine 04/22/2024 5:24 PM DIRECTOR OF MEDICAL EDUCATION CARDIOLOGY DOCUMENT SCAN 04/22/2024 from Last 3 Months Results * DEVICE CHECK - IN OFFICE (04/29/2024 11:47 AM DIRECTOR OF MEDICAL EDUCATION) Anatomical Region Laterality Modality Other Narrative 04/30/2024 3:22 PM DIRECTOR OF MEDICAL EDUCATION [employer] Accolade L311 Dual Pacemaker Dx; intermittent CHB. [...] battery life to JEAN CARLOS. Presenting rhythm: -BUSINESS PLANNER. AP- 5%, BUSINESS PLANNER- 100%. No Atrial high rate episodes recorded. No Ventricular high rate episodes noted. Medications; ASA 81 mg. No programming changes made to device settings. See scanned report. Office pacemaker f/u scheduled 05/26/2025. Latitude remote f/u 07/29/2024. Tameka Faustin RN Maria D Jacob MD CV CARDIAC SERVICES PROCEDU RES Final Result * Cardiology Document Scan (04/22/2024 5:24 PM DIRECTOR OF MEDICAL EDUCATION) Anatomical Region Laterality Modality Other Laz Carvajal MD CV CARDIAC SERVICES PROC EDURES Final Result * Cardiology Document Scan (04/22/2024) Anatomical Region Laterality Modality Other Laz Carvajal MD CV CARDIAC SERVICES PROC EDURES Final Result from Last 3 Months Insurance MEDICARE ADVANTAGE [facility] MEDICARE ADVANTAGE Care Teams Electronic Typesetting Machine Operator Relationship Specialty Start Date End Date Anson Lei MD PCP - General 08/02/10
--- OUTSIDE RECORDS SUMMARY | 2024-07-03 00:59 | XMS_ITS | Continuity of Care Document ---
Author Organization [facility] Address [address] [place] [address] utive [facility] [address] [place] [address] Phone Care Team Providers Care Casting Machine Operator Name Role Phone Kandi Lester Unavailable Unavailable Procedures Procedure Date Office/outpatient Visit, Est Fundus Photography W/ Report Office/outpatient Visit, Est Visual Field Examination(s) Office/outpatient Visit, Est Office/outpatient Visit, Est Fundus Photography W/ Report Visual Field Examination(s) Office/outpatient Visit, Est Office/outpatient Visit, Est Corneal Pachymetry Fundus Photography W/ Report Visual Field Examination(s) Office/outpatient Visit, Est Office/outpatient Visit, New Advance Directives Directive Yes / No Effective Date File Name No Information Encounters Encounter Description Practice Location Reason(s) For Visit Diagnoses Date Provider Providers Copied on Encounter Office/outpat ient Visit, [facility], [address], [place], [place], [id number], [place] tel:[phone] [facility] No Information 0 Tayler Chau. [address] , [address], [place], [address], [place]. tel:[phone] Referring Provider: Kandi Henry, [address], [place], [address]. tel:[phone] Office/outpat ient Visit, [facility], [address], [place], [place], [id number], [place] tel:[phone] [facility] No Information August-0 -201 0 Tayler Grady [address] , [address], [place], [place], [facility], . tel:[phone] Referring Provider: Kandi Henry, [address], [place], [facility]. tel:[phone] [facility], [address], [place], [place], [id number], [place] tel:[phone] [facility] No Information 9 Tayler Grady [address] [facility] , [address], [place], [place], [facility], . tel:[phone] Referring Provider: Kandi Henry, [address], [place], [facility]. tel:[phone] Office/outpat ient Visit, [facility], [address], [place], [place], [address], [place] tel:[phone] [facility] No Information 9 Tayler Grady [address] [facility] , [address], [place], [facility], . tel:[phone] Office/outpat ient Visit, [facility], [address], [place], [place], [address], [place] tel:[phone] [facility] No Information 9 Tayler Grady [address] , [address], [place], [facility], . tel:[phone] [facility], [address], [place], [place], [address], [place] tel:[phone] [facility] No Information Dec-2 3-200 8 Tayler Chau. [address] , [address], [place], [facility], . tel:[phone] Referring Provider: Kandi Henry, [address], [place], [facility]. tel:[phone] [facility], [address] [place] [address] [address], [place], [place], [id number], [place] tel:[phone] [facility] No Information Sep-0 2-200 8 Tayler Chau. [address] , [address], [place], [facility], [place]. tel:[phone] Referring Provider: Kandi Henry, [facility] [facility] [address], [place], [facility]. tel:[phone] Office/outpat ient Visit, [facility], [address] [place] [address] [address], [place], [place], [address], [place] tel:[phone] [facility] No Information Apr-2 5-200 8 Tayler Chau. [address] [facility] , [address], [place], [facility], [place]. tel:[phone] Office/outpat ient Visit, [facility], [address] [place] [address] [address], [place], [place], [address], [place] tel:[phone] [facility] No Information Dec-2 1-200 7 Tayler Chau. [address] , [address], [place], [facility], [place]. tel:[phone] Referring Provider: Kandi Henry, [address], [place], [facility]. tel:[phone] [facility], [address], [place], [place], [address], [place] tel:[phone] [facility] No Information 7 Tayler Grady [address] [facility] , [address], [place], [facility], [place]. tel:[phone] Referring Provider: Kandi Henry, [address] [facility] [address], [place], [facility]. tel:[phone] Office/outpat ient Visit, [facility] [address], [place], [place], [address], [place] tel:[phone] [facility] No Information 7 Tayler Chau. [address] [facility] , [address], [place], [facility], [place]. tel:[phone] Office/outpat ient Visit, [facility], [address], [place], [place], [address], [place] tel:[phone] [facility] No Information 7 Tayler Grady [address] [facility] , [address], [place], [facility], [place]. tel:[phone] Family History Family Member Type Diagnosis Age At Onset No Information Payers Payer name Insurance type Covered democrat ID Authoriza tion(s) No Information Social History Type Description Quantity Date Captured Comments Sex Female Smoking Status No Information Chief Complaint And Reason For Visit No Information Reason For Referral Reason For Referral No Information History Of Present Illness Encounter Date Complaint History Of Prese nt Illness No Information Functional Status Date Functional Assessmen t No Information Instructions Date Instruction Additional Infor mation No Information Assessments Type Assessment Date No Information Patient Care Teams Name Effective Dates (start - stop) Status Members No Information
--- OUTSIDE RECORDS SUMMARY | 2024-07-03 00:59 | XMS_ITS | Continuity of Care Document ---
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 Name Role Phone Anson Lei MD Unavailable Unavailable Allergies, Adverse Reactions, Alerts Substance Reaction Status Criticality No Known Allergies Active No Inform ation Medications Medication Instructions Dosage Effective Dates (start - stop) Status Comments sildenafil 50 mg tablet take 1 tablet by oral route every day as directe as needed 50 MG - Active take one or ally about 1 hour before activity, max /24 hours Zetia 10 mg tablet take 1 tablet by oral route every day 10 MG - Active lisinopril 10 mg tablet take 1 tablet by oral route every day 10 MG - Active Procedures Procedure Date OFFICE/OUTPATIENT VISIT, EST OFFICE/OUTPATIENT VISIT, EST PREV VISIT, EST, 65 & OVER OFFICE/OUTPATIENT VISIT, EST PREV VISIT, EST, 65 & OVER OFFICE/OUTPATIENT VISIT, EST OFFICE/OUTPATIENT VISIT, EST OFFICE/OUTPATIENT VISIT, EST OFFICE/OUTPATIENT VISIT, EST OFFICE/OUTPATIENT VISIT, EST OFFICE/OUTPATIENT VISIT, EST PREV VISIT, EST, 65 & OVER OFFICE/OUTPATIENT VISIT, EST OFFICE/OUTPATIENT VISIT, EST OFFICE/OUTPATIENT VISIT, EST OFFICE/OUTPATIENT VISIT, EST OFFICE/OUTPATIENT VISIT, EST PREV VISIT, EST, 65 & OVER OFFICE/OUTPATIENT VISIT, EST PREV VISIT, EST, 65 & OVER OFFICE/OUTPATIENT VISIT, EST OFFICE/OUTPATIENT VISIT, EST OFFICE/OUTPATIENT VISIT, EST PREV VISIT, EST, AGE 40-64 OFFICE/OUTPATIENT VISIT, EST OFFICE/OUTPATIENT VISIT, EST PREV VISIT, EST, AGE 40-64 OFFICE/OUTPATIENT VISIT, EST Advance Directives Directive Yes / No Effective Date File Name No Information Encounters Encounter Description Practice Location Reason(s) For Visit Diagnoses Date Provider Providers Copied on Encounter OFFICE/OUTPA TIENT VISIT, [facility], [address], [place], [place], [address], [place] tel:[phone] [facility] glucose1 (chief complaint)PS A (chief complaint)HL P (chief complaint)co pretty polyp1 (chief complaint) HyperglycemiaMixe d hyperlipidemiaEle vated PSAPolyp of colon 5 Quique Griggs. [address], [place], [place], [address] , [place]. tel:[phone] Referring Provider: Chip Roberts, [place], [place], [address]. tel:[phone] OFFICE/OUTPA TIENT VISIT, [facility], [address], [place], [place], [address], [place] tel:[phone] [facility] ED (chief complaint)HL P (chief complaint)CA D (chief complaint)co pretty polyp1 (chief complaint) Coronary artery disease of the [place] coronary artery without angina pectorisEssential (primary) hypertensionMale erectile dysfunction, unspecifiedMixed hyperlipidemiaPol yp of colon 5 Quique Griggs. [address], [place], [place], [address] , [place]. tel:[phone] Referring Provider: Chip Roberts [address], [place], [place], [address]. tel:[phone] PREV VISIT, EST, 65 & OVER [facility], [address], [place], [place], [address], [place] tel:[phone] [facility] Medicine physical (chief complaint) Encounter for general adult medical exam w abnormal findingsEssential (primary) hypertensionCoron dalton artery disease of the [place] coronary artery without angina pectorisMixed hyperlipidemiaMal e erectile dysfunction, unspecifiedAbnorm al weight lossHyperglycemia 4 Quique Griggs. [address], [place], [place], [address] , [place]. tel:[phone] Referring Provider: Chip Roberts [address], [place], [place], [address]. tel:[phone] PREV VISIT, EST, 65 & OVER [facility], [address], [place], [place], [address], [place] tel:[phone] [facility] Medicine physical (chief complaint) Encounter for general adult medical exam w abnormal findingsMixed hyperlipidemiaEss ential (primary) hypertensionCoron dalton artery disease of [place] coronary artery without angina pectorisNevus, non-neoplastic 3 Quique Griggs. [address], [place], [place], [address] , [place]. tel:[phone] Referring Provider: Chip Roberts [address], [place], [place], [address]. tel:[phone] OFFICE/OUTPA TIENT VISIT, [facility], [address], [place], [place], [address], [place] tel:[phone] [facility] abd pain (chief complaint) Calculus of gallbladder w/o cholecystitis w/o obstructionAbdomi nal painAlcoholic gastritis without bleeding 2 Quique Griggs. [address], [place], [place], [address] , [place]. tel:[phone] Referring Provider: Chip Roberts [address], [place], [place], [address]. tel:[phone] OFFICE/OUTPA TIENT VISIT, [facility], [address], [place], [place], [address], [place] tel:[phone] [facility] abd pain1 (chief complaint) Abdominal painCalculus of gallbladder w/o cholecystitis w/o obstruction 1 Quique Driver [address], [place], [place], [address] , [place]. tel:[phone] Referring Provider: Anson Lei [address] [facility] [address], [place], [place], [address]. tel:[phone] OFFICE/OUTPA TIENT VISIT, [facility], [address], [place], [place], [address], [place] tel:[phone] [facility] colon polyp1 (chief complaint)HL P (chief complaint)ga llbladder polyp1 (chief complaint)ra ynaud1 (chief complaint)gl ucose1 (chief complaint) Polyp of colonCoronary artery disease of the [place] coronary artery without angina pectorisHyperlipi demiaRaynaud's syndrome without gangreneCholester olosis of gallbladderHyperg lycemia 1 Quique Driver [address], [place], [place], [address] , [place]. tel:[phone] Referring Provider: Chip Roberts [email or web address] A, [place], [place], [address]. tel:[phone] OFFICE/OUTPA TIENT VISIT, [facility], [address] [place], [address], [place] tel:[phone] [facility] raynaud1 (chief complaint)HL P (chief complaint)tu bular adenoma1 (chief complaint)gl ucose1 (chief complaint)ga llbladder polyp (chief complaint) Raynaud's syndrome without gangreneHyperlipi demiaSensorineura l hearing loss, bilateralPolyp of colonHyperglycemi aCholesterolosis of gallbladderCorona ry artery disease of the [place] coronary artery without angina pectoris 1 Quique Driver [address], [place], [place], [address] , [place]. tel:[phone] Referring Provider: Anson Lei, [address], [place], [place], [address]. tel:[phone] OFFICE/OUTPA TIENT VISIT, [facility], [address], [place], [place], [address], [place] tel:[phone] [facility] raynaud1 (chief complaint)he aring (chief complaint)co pretty polyp1 (chief complaint) Raynaud's syndrome without gangrenePolyp of colonSensorineura l hearing loss, bilateral Apr-3 0- 1 Quique Griggs. [address], [place], [place], [address] , [place]. tel:[phone] Referring Provider: Anson Lei [address], [place], [place], [address]. tel:[phone] PREV VISIT, EST, 65 & OVER [facility], [address], [place], [place], [address], [place] tel:[phone] [facility] physical (chief complaint) Encounter for general adult medical exam w abnormal findingsCholester olosis of gallbladderHyperl ipidemiaCoronary artery disease of the [place] coronary artery without angina pectorisPolyp of colon Jun-0 1 Quique Griggs. [address], [place], [place], [address] , [place]. tel:[phone] Referring Provider: Anson Lei [address], [place], [place], [address]. tel:[phone] OFFICE/OUTPA TIENT VISIT, [facility], [address], [place], [place], [address], [place] tel:[phone] [facility] gallbladder1 (chief complaint) Cholesterolosis of gallbladder Mike-2 0 Quique Griggs. [address], [place], [place], [address] , [place]. tel:[phone] Referring Provider: Anson Lei, [address], [place], [place], [address]. tel:[phone] OFFICE/OUTPA TIENT VISIT, [facility], [address], [place], [place], [address], [place] tel:[phone] [facility] gallbladder (chief complaint) Disease of gallbladder, unspecified 0 Quique Griggs. [address], [place], [place], [address] , [place]. tel:[phone] Referring Provider: Anson Lei, [address], [place], [place], [address]. tel:[phone] OFFICE/OUTPA TIENT VISIT, [facility], [address], [place], [place], [address], [place] tel:[phone] [facility] gallbladder polyp (chief complaint) Disease of gallbladder, unspecified 9 Quique Griggs. [address], [place], [place], [address] , [place]. tel:[phone] Referring Provider: Chip Roberts [address], [place], [place], [address]. tel:[phone] OFFICE/OUTPA TIENT VISIT, [facility], [address], [place], [place], [address], [place] tel:[phone] [facility] Medicine glucose1 (chief complaint)hy ponatremia1 (chief complaint)ca lcium1 (chief complaint)LF T (chief complaint) HyperlipidemiaHyp erglycemiaHyponat remiaLiver diseaseThrombocyt openia 9 Quique Griggs. [address], [place], [place], [address] , [place]. tel:[phone] Referring Provider: Chip Roberts [address], [place], [place], [address]. tel:[phone] PREV VISIT, EST, 65 & OVER [facility], [address], [place], [place], [address], [place] tel:[phone] [facility] Physical (chief complaint) Encounter for general adult medical exam w abnormal findingsHyperlipi demiaEssential (primary) hypertensionPain in unspecified jointCoronary artery disease of the [place] coronary artery without angina pectorisUmbilical hernia 9 Quique Griggs. [address], [place], [place], [address] , [place]. tel:[phone] Referring Provider: Chip Roberts [address], [place], [place], [address]. tel:[phone] PREV VISIT, EST, 65 & OVER [facility], [address], [place], [place], [address], [place] tel:[phone] [facility] PHysical (chief complaint) Encounter for general adult medical exam w abnormal findingsEssential (primary) hypertensionHyper lipidemiaImpacted cerumen, right ear Jul- 7 Quique Griggs. [address], [place], [place], [address] , [place]. tel:[phone] Referring Provider: Chip Roberts [address], [place], [place], [address]. tel:[phone] OFFICE/OUTPA TIENT VISIT, [facility], [address], [place], [place], [address], [place] tel:[phone] [facility] poison IV (chief complaint) Contact dermatitis 6 Quique Griggs. [address], [place], [place], [address] , [place]. tel:[phone] Referring Provider: Chip Roberts [address], [place], [place], [address]. tel:[phone] OFFICE/OUTPA TIENT VISIT, [facility], [address], [place], [place], [address], [place] tel:[phone] [facility] breast nodule (chief complaint)um blical hernia1 (chief complaint)HS V (chief complaint) Abdominal hernia NOSLump in breastHerpes simplex infection NOS 6 Quique Griggs. [address], [place], [place], [address] , [place]. tel:[phone] Referring Provider: [address], [place], [place], [address]. tel:[phone] PREV VISIT, EST, AGE 40-64 [facility], [address], [place], [place], [address], [place] tel:[phone] [facility] Medicine Physical (chief complaint) Encounter for general adult medical exam w abnormal findingsEssential (primary) hypertensionHerpe sviral infection of other male genital organsUmbilical hernia Jul-0 6 Quique Griggs. [address], [place], [place], [address] , [place]. [phone] Referring Provider: Chip Roberts [address], [place], [place], [address]. tel:[phone] OFFICE/OUTPA TIENT VISIT, EST [facility], [address], [place], [place], [address], [place] tel:[phone] [facility] Medicine CAD (chief complaint)HT N (chief complaint)HL P (chief complaint)hy perglycemia (chief complaint) Dietary surveillance and counselingCAD, [place] VesselHypertensio n, UnspecifiedOther and unspecified hyperlipidemiaHyp erglycemia Dec-3 4 Quique Griggs. [address], [place], [place], [address] , [place]. [phone] Referring Provider: Chip Roberts [address], [place], [place], [address]. tel:[phone] PREV VISIT, EST, AGE 40-64 [facility], [address], [place], [place], [address], [place] tel:[phone] [facility] Medicine PHysical (chief complaint) Routine Medical ExamBronchitis, AcuteFatigue / MalaiseCAD, [place] VesselRoutine Medical Exam 4 Quique Griggs. [address], [place], [place], [address] , [place]. [phone] Referring Provider: Chip Roberts [address], [place], [place], [address]. tel:[phone] Family History Family Member Type Diagnosis Age At Onset Sister Problem (finding) Alive and well Mother Problem (finding) Alive and well Father Problem (finding) Cancer - leukemia 74 Payers Payer name Insurance type Covered republican ID Gagandeep breen(s) AARP [facility] [id number] Social History Type Description Quantity Date Captured Comments Alcohol Use Details Caffeine Use Details Unknown Tobacco Use Status Ex-cigarette smoker 025 Smoking Status Former smoker Sex Male Vital Signs Date / Time: Height Weight BMI Pulse Rate Blood Pressure Temperature Respiratory Rate Body Surface Area Head Circumference BMI percentile Pulse Ox Inhaled Ox 3:08 PM 66.00 in 163.40 lbs 26.3 7 kg/m eter (2) 65 /min 110/62 mm[Hg] 97.9 F 16 /min Chief Complaint And Reason For Visit From encounter dated '06/23/2024 15:01'. glucose1 (chief complaint). Description: Pt has high glucose and high A1c Pt does drink alcohol andeats a lot of candy and sweet Pt denies any polyuria polydipsia . PSA (chief complaint). Description: Pt has elevated PSA Pt denies any urinary symptoms. HLP (chief complaint). Description: Pt has HLP pt takes zetia. his lipid profile is ok colon polyp1 (chief complaint). Description: Pt has history of tubular adenoma on colonoscopy. Pt denies any GI symptoms Plan Of Treatment Date Type Action Status Goal Tobacco cessation counseling completed Goal Special diet education compl eted Goal Tobacco cessation counseling completed Goal Tobacco cessation counseling completed Referral Ordered: Urology (related to Elevated PSA) ordered Referral Ordered: Referrals: Urology. Evaluate and treat ordered Referral Ordered: Otolaryngology (related to Nevus, non-neoplastic) ordered Referral Ordered: Referrals: Otolaryngology. Evaluate and treat ordered Referral Ordered: NUC MED HIDA (HEPATOBILIARY) SCAN ordered Referral Ordered: HEARING TEST PURE TONE AUDIOMETRY, AIR ordered Referral Ordered: Cardiology (related to Coronary artery disease of the [place] coronary artery without angina pectoris) ordered Referral Ordered: Bladimir Mendoza -[facility] : Ophthalmology (related to Encounter for general adult medical exam w abnormal findings) ordered Referral Ordered: Referrals: Cardiology. Evaluate and treat ordered Referral Referred To: Bladimir Mendoza [address] [place], [phone] Ordered: Referrals: [facility] : Ophthalmology. Bladimir Mendoza. Evaluate and treat ordered Referral Ordered: US EXAM OF ABDOMEN, LIMITED, GALLBLADDER ordered Referral Ordered: MRI ABDOMEN W/O & W/DYE ordered Referral Ordered: US EXAM, ABDOM, COMPLETE ordered Referral Ordered: Camilo Salamanca (related to Abdominal hernia NOS) ordered Referral Ordered: Camilo Salamanca (related to Lump in breast) ordered Referral Ordered: Surgery (related to Lump in breast) ordered Referral Ordered: Referrals: Surgery. Evaluate and treat ordered Referral Referred To: Camilo Salamanca [address] [place], [phone] Ordered: Referrals: Camilo Salamanca. Evaluate and treat ordered Referral Ordered: COLONOSCOPY AND BIOPSY ordered Referral Ordered: CHEST X-RAY PA/LAT TWO-VIEWS ordered Appointment Ravi Carlson BOOKED History Of Present Illness Encounter Date Complaint History Of Prese nt Illness glucose1 Pt has high gluc ose and high A1c Pt does drink alcohol and eats a lot of candy and sweet Pt denies any polyuria polydipsia . PSA Pt has elevated PSA Pt denies any urinary symptoms. HLP Pt has HLP pt ta kes zetia. his lipid profile is ok colon polyp1 Pt has history o f tubular adenoma on colonoscopy. Pt denies any GI symptoms ED pt has ED Pt is on sildenafil PRn and doing ok. Pt denies any testicular pain, atrophy or nodule HLP Pt has HLP ,pt i s on zetia. Pt could not tolerate statin. CAD Pt has CAd with stent with pace maker. Pt is seeing cardiology .pt will have new pace maker placed next week due to battery issue colon polyp1 Pt has tubular a denoma .Pt has not done colonoscopy yet. Pt denies any GI issue physical Pt needs annual physical pt has history of CAD with stent Pt denies any chest pain ,Pt sees cardiology ,Pt denies any sob and chest pain .Pt has HTn Pt takes lisinopril. Pt has HLP but he could not tolerate statin Pt is on zetia. His lipid is ok. Pt has history of mildly high glucose .Pt denies any polyuria ,polydipsia. Pt has been intentionally losing weight with diet and exercise Pt has ED Pt wants to try viagra PRN physical Pt needs annual physical pt has history of CAD with stent Pt denies any chest pain ,Pt sees cardiology ,Pt denies any sob .Pt has HTn Pt takes lisinopril Pt is off norvasc per cardiology per patient Pt has HLP but he could not tolerate statin Pt is on zetia Pt notices a dark spot on right upper lip for 6 months Pt denies any size change or any pain or bleeding. Pt denies any other complaints abd pain Pt c/o intermitt ent right upper quadrant dull pain with mild tenderness for several months, regardless of food intake. Pt denies any nausea or vomiting Pt denies any todd relationship with food. Pt is very poor historian and he is not very clear about his abd pain. pt had gallbladder ultrasound done which showed gallstone without acute cholecystitis. Pt then had HIDA scan done which was normal. Pt denies any gerd. Pt states that he currently no longer has any right upper quadrant abd pain except when he drinks alcohol. abd pain1 Pt c/o intermitt ent right upper quadrant dull pain with mild tenderness for several months, regardless of food intake. Pt denies any nausea or vomiting Pt denies any todd relationship food. Pt is very poor historian and he is not very clear about his abd pain. pt had gallbladder ultrasound done which showed gallstone without acute cholecystitis. glucose Pt has borderlin e high glucose. Pt denies any polyuria, polydipsia. raynaud1 Pt has raynaud s ymptoms all fingers throughout the season worse in the winter time .Pt also notices finger numbness and tingling when the finger turns white. Pt states that norvasc really helped his symptoms but he is out. colon polyp1 Pt has tubular a denoma on colonoscopy early this year Pt denies any GI issue Pt supposes to have repeat colonoscopy in 3 years HLP Pt has HLP. Pt t akes zetia only .Pt could not tolerate statin due to myalgia. His LDL is not at goal gallbladder polyp1 Pt has ? gall bladder polyp. Pt denies any abd pain. Pt has not done gallbladder ultrasound yet. glucose1 Pt has mildly hi gh glucose Pt denies any polyuria, polydipsia. gallbladder polyp Pt has ? gallb ladder polyp. Pt denies any abd pain. Pt has not done gallbladder ultrasound yet. tubular adenoma1 Pt has tubular adenoma. Pt denies any GI issue Pt has clemencia with GI for colonoscopy in September. HLP Pt has HLP raynaud1 Pt started norva sc last week and he has not had anymore finger discoloration yet Pt denies any numbness or tingling . hearing Pt c/o bilateral hearing loss for several years Pt denies any ear pain or any drainage. colon polyp1 Pt has tubular a denoma on colonoscopy 2013 .Pt denies any lower GI issue or weight loss Pt wants to see a different GI doctor for colonoscopy. raynaud1 Pt has chronic p tigist and cold feeling and numbness around tip of all fingers whenever the temp is cold for many years .Pt denies any toe issue Pt denies any symptoms during normal temp Pt states that he has to wear gloves whenever it is cold outside. Pt states that his symptoms seem getting worse recently. Pt states that he feels above symptoms almost weekly now. physical PT needs annual physical Pt has CAD with stent and also pace maker due to AV block. Pt sees cardiology Pt denies any chest pain or sob Pt also is on zetia and lisinopril. Pt could not tolerate statin. Pt has tubular adenoma on colonoscopy 2013 and he has been noncompliant with repeat colonoscopy Pt denies any GI issue. Pt denies any other complaints gallbladder1 Pt has gallbladd er wall lesion on recent gallbladder ultrasound Pt supposes to do MRi of gallbladder but he could not do that due to pace maker. Pt denies any abd pain Pt denies any jaundice. Pt had another ultrasound done which showed gallbladder sludge only. gallbladder Pt has gallbladd er lesion. Pt denies any abdominal pain Pt has hard time finding radiology willing to do MRI of gallbladder due to pacemaker. gallbladder polyp Pt had abdomin al ultrasound done which showed nonmobile echogenic nodule along the wall of the gallbladder wall. Pt denies any adnominal pain and jaundice. LFT Pt has high LFt and low platelet on recent ER visit. Pt denies any bruising. Pt did drink heavy alcohol prior to the onset of his sob. Pt denies any abd pain Pt states that breathing issue resolved. Pt denies any swelling. Pt drinks 6 pack of beer and half pint of [place] about twice per week for long time. Pt states that every time he drank alcohol, he feels rather badly. calcium1 Pt has mild low calcium and low serum protein on recent lab, which all resolved. hyponatremia1 pt has mild hypo natremia. Pt denies any mental status change or headache glucose1 Pt has mildly el evated glucose. Pt denies any polyuria, polydipsia. Pt has mildly elevated TG Physical PT needs annual physical Pt has CAD with stent and also pace maker due to AV block. Pt sees cardiology Pt denies any chest pain or sob Pt also is on zetia and lisinopril. Pt does not want to take crestor. Pt was in [facility] and was bitten by a tick two weeks ago on the shaft of his penis by a tick. Pt denies any rash or redness or pain Pt currently denies any issue with penis. Pt since noticed some low back pain and some low grade fever around 101.8 and overall malaise and fatigue. He did have some vague headache, which resolved. Pt denies any sob or chest pain. PT notices more concentrated urine. Pt denies any headache or rash since last week. Pt states that most of his symptoms resolved He has not had any fever or headache or urine issue or back pain for 2-3 days. Pt notices some vague knee pain but gone as well. Pt wants to be checked. Currently he feels well without any symptoms. Pt did have some taste change last week which resolved also. Pt denies any other complaints PHysical Pt needs annual physical. Pt has history of cAD with stent. Pt is seeing cardiology Pt takes lisinoril and crestor. Pt denies any chest pain. Pt denies any HSV outbreak and he is no longer taking valtrex. Pt states that his right ear feels slightly blocked but felt better now after debrox. Pt was told he has some ear wax on right side by visiting nurse. Pt denies any hearing loss. Pt denies any other complaints poison IV Pt accidently go t into poison IV plant one week ago. Pt notices itchy blisters type of rash right leg and is spreading to left leg and arms. Pt denies any trouble with swallowing or breathing. 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 Pt tried valtrex and the scrotum lesion resolved. Pt denies any UTI symptoms or recurrent symptoms umblical hernia1 Pt has a small umblical hernia. Pt denies any pain. Pt denies any nauea, vomiting, diarrhea breast nodule Pt notices small nontender nodule above right nipple for 10 days. Pt denies any pain, nipple discharge Physical Pt needs annual physical. pt has history of HSV II infection but has not had any outbreak for 20 years. Pt notices a pimple like lesion on scrotum for two months without any pain or itching. Pt has history of CAD with stent. Pt take lisinopril and crestor and he sees cardiology. Pt denies any chest pain. Pt has small hernia around umblicus for several months. Pt denies any pain. Pt alicja any nauea, vomiting, diarrhea, constipation. Pt denies any risk for STDs. Pt denies any other complaints Instructions Date Instruction Additional Infor mation Increase physical activity Relat ed to Disease of gallbladder, unspecified Special diet education Related t o Body mass index (BMI) 26.0-26.9, adult Stop smoking. Related to Hyper lipidemia Increase physical activity Relat ed to Encounter for general adult medical exam w abnormal findings Prescribed Diet Educ ation/Lifestyle Education Regarding Diet Related to Dietary Surveillance and Counseling Prescribed Activity and Exercise Education Related to Dietary Surveillance and Counseling Dietary counseling Related to Di etary surveillance counseling Decrease caloric intake Related to Dietary surveillance counseling Assessments Type Assessment Date assessment Hyperglycemia assessment Mixed hyperlipidemia assessment Elevated PSA assessment Polyp of colon Mental Status Date Cognitive Assessment Orientation - Berry ed to time, place, person, situation.
[2024-07-03 06:14] VITALS: BP 118/71; PULSE 80; RESP 16; TEMP 36.2; O2SAT 100
[2024-07-03] MEDS: LACTATED RINGERS 1,000 ML 150 ML IV CONT (06:23)
--- NOTE | 2024-07-03 06:57 | P.PNAN_ITS ---
Anes - Initial Pre Proc Eval Procedure: Operation Date: 07/03/24 07:30 Proposed Procedures p Colonoscopy - Jon Razo MD Date/Time: 07/03/24 06:57 Surgeon: Jon Razo MD Pre Op Diagnosis: Person hx. colon polyps Patient Data Age: 73 Gender: M Height: 1.68 m Weight: 71.4 kg Last Vital Signs Temp 36.2 C L 07/03/24 06:14 Pulse 80 07/03/24 06:14 Resp 16 07/03/24 06:14 BP 118/71 07/03/24 06:14 Pulse Ox 100 07/03/24 06:14 O2 Del Method Room Air 07/03/24 06:14 Allergies Allergy/AdvReac Type Severity Reaction Status Date / Time No Known Allergies Allergy Verified 07/03/24 06:12 Home Medications ?Medication ?Instructions ?Recorded ?Confirmed ?Type aspirin 81 mg tablet,delayed 81 mg PO DAILY 09/08/20 07/03/24 History release ezetimibe 10 mg tablet 10 mg PO DAILY 09/08/20 04/21/24 History lisinopril 10 mg tablet 10 mg PO DAILY 09/08/20 07/03/24 History brimonidine 0.2 % eye drops 1 drp EACH EYE BID 06/24/24 07/03/24 History rosuvastatin 20 mg tablet 20 mg PO DAILY 06/24/24 07/03/24 History Patient hx anesthesia problems: none Family hx anesthesia problems: none Results Review: All pre-operative results and documents have been reviewed as part of the pre- operative evaluation. [facility] Past Medical History Medical History Colon polyp Pacemaker Hyperlipidemia Hypertension CAD (coronary artery disease) Surgical History Surgical History Stented coronary artery Family History Family History Father Family history of malignant neoplasm Social History Social History Years smoked: 30 Smoking status: Current every day smoker Tobacco type: cigarettes Smoking end date: 04/08/24 Additional smoking assessment comments: No longer smokes cigarettes, currently vapes Alcohol intake: current Drinks per week: 10 Alcohol use details: beer Substance use: never Substance use type: does not use Living arrangements: with family Spiritual care concerns: No Anes - Eval Final PreProcedure Day of Procedure 07/03/24 06:57 Patient weight: normal Heart: regular rate and rhythm Lungs: clear to auscultation Airway: Mallampati scale class II Neurological: alert and oriented Last oral intake: >/= 8 hours ASA classification: III Emergent: no Anesthetic plan: proceed Anesthesia type and monitoring: general GIVS and standard monitoring Results Review: All pre-operative results and documents have been reviewed as part of the pre- operative evaluation. Informed Consent: The patient's anesthetic plan and its attendant risks and benefits were discussed with the patient/family/POA. Questions were solicited and answers provided to the satisfaction of the patient/family/POA.
--- NOTE | 2024-07-03 07:35 | PM.HPGS ---
History of Present Illness History of Present Illness Consent: Risks, benefits, and alternatives have been discussed and questions answered. Patient agrees to proceed with procedure. Chief complaint: Person hx. colon polyps Narrative: Ravi Carlson is a 73 year old male with colon polyp 5 years ago Review of Systems Review of Systems: All systems reviewed & are unremarkable except as noted in HPI and below PMFSH Past Medical History Medical History Colon polyp Pacemaker Hyperlipidemia Hypertension CAD (coronary artery disease) Surgical History Surgical History Stented coronary artery Family History Family History Father Family history of malignant neoplasm Social History Social History Years smoked: 30 Smoking status: Current every day smoker Tobacco type: cigarettes Smoking end date: 04/08/24 Additional smoking assessment comments: No longer smokes cigarettes, currently vapes Alcohol intake: current Drinks per week: 10 Alcohol use details: beer Substance use: never Substance use type: does not use Living arrangements: with family Spiritual care concerns: No Meds Home Medications and Allergies Home Medications ?Medication ?Instructions ?Recorded ?Confirmed ?Type aspirin 81 mg tablet,delayed 81 mg PO DAILY 09/08/20 07/03/24 History release ezetimibe 10 mg tablet 10 mg PO DAILY 09/08/20 04/21/24 History lisinopril 10 mg tablet 10 mg PO DAILY 09/08/20 07/03/24 History brimonidine 0.2 % eye drops 1 drp EACH EYE BID 06/24/24 07/03/24 History rosuvastatin 20 mg tablet 20 mg PO DAILY 06/24/24 07/03/24 History Allergies Allergy/AdvReac Type Severity Reaction Status Date / Time No Known Allergies Allergy Verified 07/03/24 06:12 Vital Signs Vital Signs - 24 hr 07/03/24 06:14 Temperature 97.2 F L Pulse Rate 80 Respiratory Rate 16 Blood Pressure 118/71 Pulse Oximetry 100 Oxygen Delivery Room Air Exam Const: General: comfortable and no acute distress HENMT: Face/Nose/Sinus: Normal nares present Eyes: General: appearance normal, both eyes and all related structures Neck: Neck: no JVD Resp: Auscultation: clear to auscultation bilaterally Cardio: Rate: regular rate Rhythm: regular rhythm GI: Inspection: non-distended GI Palp: Yes Soft to palpation Skin: General skin exam: normal color Neuro: General: gait normal Speech: normal speech Extrem: General: normal to inspection Psych: Mental Status: mental status grossly normal Assessment and Plan Assessment and plan (1) Colon polyp: Code(s): K63.5 - Polyp of colon Status: Acute Assessment and Plan: colonoscopy
[2024-07-03 07:45] VITALS: BP 115/60; PULSE 66; RESP 20; O2SAT 100
[2024-07-03 07:55] VITALS: BP 105/60; PULSE 63; RESP 19; O2SAT 100
[2024-07-03 08:05] VITALS: BP 112/90; PULSE 64; RESP 20; O2SAT 100
== END 2024-07-03 08:14 | disposition home or self-care (01) ==
PROVIDERS: PCP Emergency Medicine; Referring Provider Emergency Medicine; Visit Provider Internal Medicine Gastroenterology
PROC: 0DJD8ZZ Inspection of Lower Intestinal Tract, Via Natural or Artificial Opening Endoscopic (ICD-10-PCS; CPT 45378; principal; 2024-07-03 07:30)
DX: Z12.11 Encounter for screening for malignant neoplasm of colon (principal); K64.8 Other hemorrhoids; K57.30 Diverticulosis of large intestine without perforation or abscess without bleeding; E78.5 Hyperlipidemia, unspecified; I10 Essential (primary) hypertension; I25.10 Atherosclerotic heart disease of native coronary artery without angina pectoris; F17.290 Nicotine dependence, other tobacco product, uncomplicated; Z79.82 Long term (current) use of aspirin; Z98.890 Other specified postprocedural states; Z95.0 Presence of cardiac pacemaker; Z86.0100 Personal history of colon polyps, unspecified; Z80.9 Family history of malignant neoplasm, unspecified
CPT/HCPCS: G0105; J2704; J7120